=== PATIENT | female | born 1975 | race Caucasian/White ===

== ENCOUNTER 2021-10-28 09:50 | Outpatient (CLI) | payer BC, OTHER, SELFPAY ==
--- NOTE | ~2021-10-28 | MM_ITS ---
EXAMINATION: MM screening tran BI w berkley HISTORY: Screening TECHNIQUE: Craniocaudal and mediolateral oblique 3-D tomosynthesis images were obtained and synthetic 2-D images were generated. CAD analysis was submitted and interpreted. COMPARISON: No prior mammogram is available for comparison at this institution. BREAST PARENCHYMAL COMPOSITION: Breast composed of scattered areas of fibroglandular density FINDINGS: There are bilateral breast asymmetries. There are nonspecific clustered calcifications in t he central aspect of the left breast. IMPRESSION: 1. Bilateral breast asymmetries and clustered left breast calcifications. 2. Additional mammographic views and possible breast ultrasound are recommended. BI-RADS Category 0: Incomplete: Needs additional imaging evaluation. Reviewed, dictated and finalized at location A. IMPRESSION: 1. Bilateral breast asymmetries and clustered left breast calcifications. 2. Additional mammographic views and possible breast ultrasound are recommended . BI-RADS Category 0: Incomplete: Needs additional imaging evaluation.
== END 2021-10-28 09:51 | disposition home or self-care (01) ==
LOC: ANHIMG 09:52
PROVIDERS: Visit Provider Obstetrics & Gynecology
DX: Z12.31 Encounter for screening mammogram for malignant neoplasm of breast (principal); R92.8 Other abnormal and inconclusive findings on diagnostic imaging of breast
CPT/HCPCS: 77063; 77067

== ENCOUNTER 2021-11-04 13:59 | Outpatient (CLI) | payer BC, OTHER, SELFPAY ==
--- NOTE | ~2021-11-04 | MMUS_ITS ---
EXAMINATION: MM diagnostic tran BI w berkley, US breast BI complete HISTORY: Bilateral breast mammographic asymmetries and clustered left breast calcifications noted on October 28, 2021 screening mammogram examination TECHNIQUE: Additional 3-D tomosynthesis images of both breasts were performed and synthetic 2-D image s were generated. Magnification views of left breast. CAD analysis was submitted and interpreted. Hig h resolution bilateral complete breast ultrasound including all 4 quadrants and subareolar areas of e ach breast was performed. COMPARISON: October 28, 2021 bilateral screening mammogram FINDINGS: MAMMOGRAPHIC FINDINGS: There are bilateral benign microcalcifications. No malignant features are noted at the calcifications . No suspicious mass or architectural distortion of either breast is noted. ULTRASOUND: No suspicious solid mass or shadowing of either breast is noted. Right breast: 10:00 3 cm from nipple: 5 x 2.4 x 4.6 mm cyst with through transmission posterior enhancement 11:00 3 cm from nipple: Circumscribed 4.2 x 2.9 mm hypoechoic lesion without internal vascularity, wi th through transmission, likely a complicated cyst 12:00 3 cm from nipple: 8.8 x 3.4 mm cyst Left breast: 6:00 1 cm from 7:00 1 cm from nipple: 3.9 x 2.6 mm cyst with through transmission posterior enhancement nipple: Oval parallel circumscribed sonolucency 7 x 4 x 7.5 mm sonolucency, without internal vascularity, with th rough transmission, consistent with cyst 11:00 4 cm from nipple: 5.2 by 4.3 mm cyst IMPRESSION: 1. No mammographic evidence of malignancy 2. Routine annual mammographic screening is recommended BI-RADS Category 2: Benign finding(s). Reviewed, dictated and finalized at location A. IMPRESSION: 1. No mammographic evidence of malignancy 2. Routine annual mammographic screening is recommended BI-RADS Category 2: Benign finding(s).
== END 2021-11-04 14:00 | disposition home or self-care (01) ==
PROVIDERS: Visit Provider Obstetrics & Gynecology
DX: R92.8 Other abnormal and inconclusive findings on diagnostic imaging of breast (principal); N60.02 Solitary cyst of left breast; N60.01 Solitary cyst of right breast
CPT/HCPCS: 76641; 77062; 77066; G0279

== ENCOUNTER 2022-11-01 08:52 | Outpatient (CLI) | payer BC, OTHER, SELFPAY ==
--- NOTE | ~2022-11-01 | MM_ITS ---
EXAMINATION: MM screening tran BI w berkley HISTORY: Screening mammogram TECHNIQUE: Craniocaudal and mediolateral oblique 3-D tomosynthesis images were obtained and synthetic 2-D images were generated. CAD analysis was submitted and interpreted. COMPARISON: 11/04/2021, 10/28/2021 BREAST PARENCHYMAL COMPOSITION: The breasts are heterogeneously dense, which may obscure small masses . FINDINGS: There are waxing and waning bilateral breast masses. No suspicious mass, calcification, or architectural distortion are identified in either breast to suggest malignancy. There has been no dorina picious interval change. IMPRESSION: 1. No mammographic evidence of malignancy. 2. Recommend routine screening mammography in one year. BI-RADS Category 2: Benign finding(s). Reviewed, dictated and finalized at location A.
== END 2022-11-01 08:53 | disposition home or self-care (01) ==
PROVIDERS: Visit Provider Obstetrics & Gynecology
DX: Z12.31 Encounter for screening mammogram for malignant neoplasm of breast (principal)
CPT/HCPCS: 77063; 77067

== ENCOUNTER 2022-12-09 00:02 | Day surgery (SDC) | payer BC, SELFPAY ==
[2022-11-22 14:12] VITALS: BMI 23.5
[2022-12-09 06:57] VITALS: BP 107/74; PULSE 74; RESP 16; TEMP 36; O2SAT 100
[2022-12-09] MEDS: LACTATED RINGERS 1,000 ML 150 ML IV CONT (07:08)
--- NOTE | 2022-12-09 08:05 | P.HP_ITS ---
History of Present Illness History of Present Illness Consent: Risks, benefits, and alternatives have been discussed and questions answered. Patient agrees to proceed with procedure. Chief complaint: neoplasm screening Narrative: Madisyn Monroe is a 47 year old female Presents for screening colonoscopy. Patient's current weight appetite and bowel movements are normal. Patient denies abdominal pain. She has had no bleeding. Family history is noncontrib utory. Patient presents today for neoplasia screening. Review of Systems Review of Systems: Review of systems noncontributory. [facility] Past Medical History Medical History (Updated 12/09/22 @ 08:06 by Olvin Shaw MD) Otitis externa of left ear Surgical History Surgical History H/O hernia repair Social History Social History Smoking status: Never smoker Alcohol intake: never Substance use type: does not use Living arrangements: with family Spiritual care concerns: No Meds Home Medications and Allergies Home Medications Medication Instructions Recorded Confirmed Type norethindrone 1 mg-ethinyl 1 tablet PO DAILY 11/22/22 12/09/22 History estradiol 10 mcg (24)-iron 10 mcg(2) tablet (Lo Loestrin Fe) Allergies Allergy/AdvReac Type Severity Reaction Status Date / Time No Known Allergies Allergy Unknown Verified 12/09/22 06:53 Vital Signs Vital Signs - 24 hr 12/09/22 06:57 Temperature 96.8 F L Pulse Rate 74 Respiratory Rate 16 Blood Pressure 107/74 Pulse Oximetry 100 Oxygen Delivery Room Air Exam Narrative: Physical exam reveals patient to be alert. Vital signs stable. HEENT exam is unremarkable. Patient is anicteric. Lungs are clear to auscultation and percussion. Heart is without murmur or extra sounds. Abdomen bowel sounds are present soft nontender with no organomegaly. Digital external rectal exam is normal. Assessment and Plan Assessment and plan (1) Encounter for screening colonoscopy: Code(s): Z12.11 - Encounter for screening for malignant neoplasm of colon Status: Acute Assessment and Plan: Patient presents today for screening colonoscopy. She appears to be at average risk for colon polyps. Further recommendations may be given after endoscopy.
[2022-12-09 08:39] VITALS: BP 110/53; PULSE 78; RESP 19; O2SAT 100
[2022-12-09 08:49] VITALS: BP 110/71; PULSE 78; RESP 20; O2SAT 100
[2022-12-09 08:59] VITALS: BP 114/75; PULSE 75; RESP 16; O2SAT 100
== END 2022-12-09 09:06 | disposition home or self-care (01) ==
PROVIDERS: Visit Provider Internal Medicine Gastroenterology
PROC: 0DJD8ZZ Inspection of Lower Intestinal Tract, Via Natural or Artificial Opening Endoscopic (ICD-10-PCS; CPT 45378; principal; 2022-12-09 08:00)
DX: Z12.11 Encounter for screening for malignant neoplasm of colon (principal); K64.8 Other hemorrhoids
CPT/HCPCS: 45378; J2001; J2704; J7120

== ENCOUNTER 2023-10-06 14:40 | Outpatient (CLI) | payer BC, OTHER, SELFPAY ==
--- NOTE | ~2023-10-06 | CT_ITS ---
EXAMINATION: CT wrist RT wo con DATE: 10/06/2023 15:02 INDICATION: Bruising at the right wrist post fall 2 weeks prior TECHNIQUE: High resolution computed tomography (CT) of the right wrist was performed without intraven ous contrast. Additional sagittal and coronal reconstructions were performed. The dose Romel The d ose-length product was 78.12 mGy-cm. COMPARISON: Radiograph dated 10/03/2023 FINDINGS: Bone alignment is normal. No fracture. Minimal to mild osteoarthritis at the triscaphe, first carpome tacarpal, metacarpophalangeal and interphalangeal joints. Soft tissues are unremarkable. IMPRESSION: 1. Typical distribution of minimal to mild polyarticular osteoarthritis at the thumb and radial aspec t of the carpus. No acute osseous abnormalities. Reviewed, dictated and finalized at location A. IMPRESSION: 1. Typical distribution of minimal to mild polyarticular osteoarthritis at the thumb and radial aspect of the carpus. No acute osseous abnormalities.
== END 2023-10-06 14:41 ==
PROVIDERS: PCP Plastic Surgery; Visit Provider Plastic Surgery
DX: M19.041 Primary osteoarthritis, right hand (principal); S62.001A Unspecified fracture of navicular [scaphoid] bone of right wrist, initial encounter for closed fracture; X58.XXXA Exposure to other specified factors, initial encounter
CPT/HCPCS: 73200

== ENCOUNTER 2024-03-19 09:51 | Outpatient (CLI) | payer BC, OTHER, SELFPAY ==
--- NOTE | ~2024-03-19 | MM_ITS ---
EXAMINATION: MM screening tran BI w berkley HISTORY: Screening TECHNIQUE: Craniocaudal and mediolateral oblique 3-D tomosynthesis images were obtained and synthetic 2-D images were generated. CAD analysis was submitted and interpreted. COMPARISON: Comparison to multiple prior studies sequentially, with oldest reviewed study dated 10/28. BREAST PARENCHYMAL COMPOSITION: Dense: The breasts are heterogeneously dense, which may obscure small masses FINDINGS: The right breast is stable without evidence for malignancy. There are developing asymmetrie s in the periareolar location of the left breast. IMPRESSION: 1. Developing left breast asymmetries. 2. Additional mammographic views and possible breast ultrasound are recommended. BI-RADS Category 0: Incomplete: Needs additional imaging evaluation. Reviewed, dictated and finalized at location B. IMPRESSION: 1. Developing left breast asymmetries. 2. Additional mammographic views and possible breast ultrasound are recommended . BI-RADS Category 0: Incomplete: Needs additional imaging evaluation.
== END 2024-03-19 09:52 | disposition home or self-care (01) ==
PROVIDERS: PCP Plastic Surgery; Visit Provider Obstetrics & Gynecology
DX: Z12.31 Encounter for screening mammogram for malignant neoplasm of breast (principal); N64.89 Other specified disorders of breast
CPT/HCPCS: 77063; 77067

== ENCOUNTER 2024-04-04 10:48 | Outpatient (CLI) | payer BC, OTHER, SELFPAY ==
--- NOTE | ~2024-04-04 | MM_ITS ---
EXAMINATION: MM diagnostic tran LT w berkley HISTORY: Left breast asymmetry TECHNIQUE: Additional 3-D tomosynthesis images of the left breast were performed and synthetic 2-D im ages were generated. CAD analysis was submitted and interpreted. COMPARISON: 03/19/2024, 11/01/2022,11/04/2021 BREAST PARENCHYMAL COMPOSITION:Dense: The breasts are heterogeneously dense, which may obscure small masses. FINDINGS: No definite persistent mass lesion or suspicious distortion are identified. Benign calcific ation is present. No suspicious microcalcifications seen. Appearance is similar to prior exams. IMPRESSION: No mammographic evidence for malignancy. BI-RADS Category 2: Benign finding(s). Reviewed, dictated and finalized at [facility].
== END 2024-04-04 10:49 | disposition home or self-care (01) ==
PROVIDERS: PCP Plastic Surgery; Visit Provider Obstetrics & Gynecology
DX: R92.8 Other abnormal and inconclusive findings on diagnostic imaging of breast (principal)
CPT/HCPCS: 77061; 77065; G0279

== ENCOUNTER 2025-04-10 10:26 | Outpatient (CLI) | payer BC, OTHER, SELFPAY ==
--- NOTE | ~2025-04-10 | MM_ITS ---
EXAMINATION: MM screening tran BI w berkley HISTORY: Screening TECHNIQUE: Craniocaudal and mediolateral oblique 3-D tomosynthesis images were obtained and synthetic 2-D images were generated. CAD analysis was submitted and interpreted. COMPARISON: 10/28/2021 BREAST PARENCHYMAL COMPOSITION: The breasts are heterogeneously dense, which may obscure small masses. FINDINGS: There is no evidence of suspicious mass, calcification, or architectural distortion to suggest malignancy. There has been no suspicious interval change. IMPRESSION: 1. No mammographic evidence of malignancy. Recommend routine screening mammography in one year. BI-RADS Category 2: Benign finding(s) Reviewed, dictated and finalized at location Q. IMPRESSION: 1. No mammographic evidence of malignancy. Recommend routine screening mammogra phy in one year. BI-RADS Category 2: Benign finding(s)
== END 2025-04-10 10:27 | disposition home or self-care (01) ==
LOC: ANHFOHIMG 10:28
PROVIDERS: PCP Nurse Practitioner Family; Visit Provider Obstetrics & Gynecology
DX: Z12.31 Encounter for screening mammogram for malignant neoplasm of breast (principal)
CPT/HCPCS: 77063; 77067